=== PATIENT | male | born 2000 | race Caucasian/White ===

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

== ENCOUNTER 2019-01-02 14:20 | Emergency (ER) | payer OTHER ==
[2019-01-02] MEDS: LORAZEPAM 1 MG TAB PO (15:18)
== END 2019-01-02 15:35 | disposition home or self-care (01) ==
LOC: FTE 15:35
DX: J06.9 Acute upper respiratory infection, unspecified (principal); F41.9 Anxiety disorder, unspecified
CPT/HCPCS: 99283; Z7502

== ENCOUNTER 2019-02-15 23:50 | Emergency (ER) | payer OTHER | END 2019-02-16 00:35 | disposition home or self-care (01) | LOC: FTE 23:50 | DX: R21 Rash and other nonspecific skin eruption (principal) | CPT/HCPCS: 99283; Z7502 ==